=== PATIENT | male | born 1985 | race Caucasian/White ===

== ENCOUNTER 2016-11-17 22:25 | Inpatient (IN) | payer MEDICAID ==
[~2016-11-17] VITALS: Ht 177.8 cm; Wt 68.0 kg
[2016-11-17 23:30] LABS: APPEARANCE CLEAR (CLEAR); BILIRUBIN NEGATIVE (NEGATIVE); COLOR YELLOW (YELLOW); GLUCOSE NEGATIVE (NEGATIVE); KETONE NEGATIVE (NEGATIVE); LEUKOCYTE ESTERASE NEGATIVE (NEGATIVE); NITRITE NEGATIVE (NEGATIVE); PROTEIN NEGATIVE (NEGATIVE); SPECIFIC GRAVITY 1.015 (1.005-1.020); UROBILINOGEN NORMAL (NORMAL)
[2016-11-17 23:32] LABS: BASOPHILS 0.1 % (0.0-2.0); EOSINOPHILS 1.2 % (0-7); HEMATOCRIT 47.4 % (42.0-54.0); HEMOGLOBIN 15.8 g/dL (13.5-17.5); IMMATURE GRANULOCYTES 0.1 % (0-5); LYMPHOCYTES 8.1 % (15-50); MCH 29.6 pg (26.0-34.0); MCHC 33.3 g/dL (31.0-37.0); MCV 88.9 fL (80.0-100.0); MEAN PLATELET VOLUME 11.4 fL (7.4-10.4); MONOCYTES 6.6 % (2-11); NEUTROPHILS 83.9 % (40-80); PLATELET COUNT 244 10x3/uL (130-400); RBC 5.33 10x6/uL (4.20-6.10); RDW 13.7 % (11.5-14.5); WBC 10.2 10x3/uL (4.8-10.8)
[2016-11-17 23:55] LABS: ALBUMIN 4.1 g/dL (3.4-5.0); ALKALINE PHOSPHATASE 69 U/L (46-116); ALT (SGPT) 20 U/L (10-68); AMYLASE - SERUM 55 U/L (25-115); BILIRUBIN - TOTAL 0.61 mg/dL (0.2-1.3); CALC OSMOLALITY 286 mosm/kg (275-300); CALCIUM 9.3 mg/dL (8.5-10.1); CARBON DIOXIDE 33.2 mmol/L (21.0-32.0); CHLORIDE - SERUM 104 mmol/L (98-107); GLUCOSE 91 mg/dL (74-106); LIPASE 114 U/L (73-393); POTASSIUM - SERUM 3.6 mmol/L (3.5-5.1); PROTEIN - SERUM 7.2 g/dL (6.4-8.2); SODIUM 144 mmol/L (136-145); UREA NITROGEN 13 mg/dL (7-18); eGFR NON AFRICAN AMERICAN > 90 mL/min (90-120)
--- NOTE | 2016-11-18 04:18 | NUR ---
RECIEVED PT TO FLOOR VIA WHEELCHAIR AND VISITOR. PT IS ALERT AND ORIENTED AND ABLE TO VERBALIZE NEEDS. IV IS PATENT AND SALINE LOC AT THIS TIME. PT STATES PAIN IS 10/10. PT IS AMBULATORY BUT WAS INSTRUCTED TO CALL FOR ANY ASSISTANCE NEEDED. PT IS ORIENTED TO ROOM AND USE OF CALL LIGHT. NO NEEDS ARE VERBALIZED AT THIS TIME. WILL CONTINUE TO MONITOR. SIDE RAILS ARE UP X 1. BED IS IN LOWEST POSITION. CALL LIGHT IS WITHIN REACH.
--- NOTE | 2016-11-18 04:30 | NUR ---
ADMIT ASSESSMENT COMPLETED. PT C/O PAIN 10/ AND NAUSEA. ADMINISTERED PRESCRIBED PRN ZOFRAN AND DEMEROL PER ORDER. DENIES FURTHER NEEDS. WILL MONITOR. SIDE RAILS X 1. BED LOW. CALL LIGHT IN REACH.
[2016-11-18] MEDS ORDERED: IBUPROFEN800 MG PO (06:01)
[2016-11-18] MEDS ORDERED: ACETAMINOPHEN500 M1 PO (06:02)
[2016-11-18 06:12] VITALS: BP 114/77; BMI 21.5
--- NOTE | 2016-11-18 07:30 | NUR ---
PT ASSESSMENT COMPLETE AWAKE AND ALERT ORIENTED X 3 LUNGS CLEAR BILATERALLY BSA X 4 QUADS TENDERNESS NOTED TO ABDOMEN ON PALPATION. HRRR VOICES ALL NEEDS TO STAFF STATES THAT PAIN MED ORDERED NOT EFFECTIVE FOR PAIN CONTROL. WILL ADDRESS WITH MD.
--- NOTE | 2016-11-18 07:56 | NUR ---
LYING SUPINE WITH RESPIRATIONS EVEN AND NON LABORED. EYES CLOSED. BED IN LOWEST POSITION AND LOCKED WITH SRX2. CALL LIGHT IN REACH, WILL CONTINUE WITH PLAN OF CARE.
[2016-11-18 08:16] VITALS: BP 96/56
[2016-11-18 09:31] LABS: BASOPHILS 0.1 % (0.0-2.0); EOSINOPHILS 0.2 % (0-7); HEMATOCRIT 44.3 % (42.0-54.0); HEMOGLOBIN 14.6 g/dL (13.5-17.5); IMMATURE GRANULOCYTES 0.2 % (0-5); LYMPHOCYTES 4.3 % (15-50); MCH 29.3 pg (26.0-34.0); MCV 88.8 fL (80.0-100.0); MONOCYTES 0.7 % (2-11); NEUTROPHILS 94.5 % (40-80); PLATELET COUNT 244 10x3/uL (130-400); RBC 4.99 10x6/uL (4.20-6.10); RDW 13.7 % (11.5-14.5); WBC 9.2 10x3/uL (4.8-10.8)
[2016-11-18 12:08] VITALS: BP 113/70
[2016-11-18 12:46] VITALS: Ht 177.8 cm; Wt 68.0 kg
--- NOTE | 2016-11-18 12:46 | NUR ---
PAIN MED REQUESTED AND GIVEN EARLIER PER NEW ORDER OF INCREASE DEMEROL TO 25 MG Q4H NEEDED. WILL MONITOR.
[2016-11-18 16:04] VITALS: BP 111/75
--- NOTE | 2016-11-18 19:30 | NUR ---
RECIEVED SHIFT REPORT. PT IS LYING IN BED. ALERT AND ORIENTED AND ABLE TO VERBALIZE NEEDS. IV IS PATENT AND FLUIDS ARE RUNNING PER ORDER. PT IS AMBULATORY BUT WAS INSTRUCTED TO CALL FOR ANY ASSISTANCE NEEDED. PT STATES PAIN IS 9/10. NO NEEDS ARE VERBALIZED AT THIS TIME. WILL CONTINUE TO MONITOR. SIDE RAILS ARE UP X 2. BED IS IN LOWEST POSITION. CALL LIGHT IS WITHIN REACH.
--- NOTE | 2016-11-18 22:13 | NUR ---
SHIFT ASSESSMENT COMPLETED. NIGHT MEDS GIVEN WITH NO PROBLEMS. NO NEEDS ARE VOICED. WILL MONITOR. SIDE RAILS X 2. BED LOW. CALL LIGHT IN REACH.
[2016-11-19 04:00] VITALS: BP 122/71
[2016-11-19 06:43] LABS: BASOPHILS 0.1 % (0.0-2.0); EOSINOPHILS 0 % (0-7); HEMATOCRIT 42.4 % (42.0-54.0); HEMOGLOBIN 13.9 g/dL (13.5-17.5); IMMATURE GRANULOCYTES 0.3 % (0-5); LYMPHOCYTES 2.4 % (15-50); MCH 29.1 pg (26.0-34.0); MCHC 32.8 g/dL (31.0-37.0); MCV 88.7 fL (80.0-100.0); MEAN PLATELET VOLUME 11.7 fL (7.4-10.4); MONOCYTES 4.4 % (2-11); NEUTROPHILS 92.8 % (40-80); PLATELET COUNT 261 10x3/uL (130-400); RBC 4.78 10x6/uL (4.20-6.10); RDW 13.5 % (11.5-14.5)
[2016-11-19 06:46] LABS: WBC 19.5 10x3/uL (4.8-10.8)
[2016-11-19 07:09] LABS: ALBUMIN 3.3 g/dL (3.4-5.0); ALKALINE PHOSPHATASE 57 U/L (46-116); ALT (SGPT) 17 U/L (10-68); BILIRUBIN - TOTAL 0.44 mg/dL (0.2-1.3); CALC OSMOLALITY 282 mosm/kg (275-300); CALCIUM 8.8 mg/dL (8.5-10.1); CARBON DIOXIDE 28.8 mmol/L (21.0-32.0); CHLORIDE - SERUM 105 mmol/L (98-107); GLUCOSE 117 mg/dL (74-106); POTASSIUM - SERUM 4.2 mmol/L (3.5-5.1); PROTEIN - SERUM 5.9 g/dL (6.4-8.2); SODIUM 142 mmol/L (136-145); UREA NITROGEN 10 mg/dL (7-18); eGFR NON AFRICAN AMERICAN > 90 mL/min (90-120)
--- NOTE | 2016-11-19 08:00 | NUR ---
PT ASSESSMENT COMPLETE AWAKE AND ALERT ORINETED X 3 LUNGS CTA BILATERALLY ALL ADLS PER STAFF ASSIST HAS UNSTEADY GAIT TOLERATES MEDS WELL STOOL SAMPLE PROVIDED. SEE FLOWSHEET FOR ASSESSMENT
[2016-11-19 08:05] LABS: ERYTHROCYTE SEDIMENTATION RATE 3 mm/hr (0-15)
--- NOTE | 2016-11-19 08:30 | NUR ---
LYING IN BED,WITHOUT DISTRESS,CALL LIGHT IN REACH
[2016-11-19 08:39] VITALS: BP 106/63
--- NOTE | 2016-11-19 09:45 | CN ---
PATIENT NAME:CRUZ SAHU MEDICAL RECORD: [id number] : 83 LOCATION:[facility] ADMIT DATE: 11/18/16 ACCOUNT: [id number] CONSULTING PHYSICIAN: JAYCE PAYNE MD REFERRING PHYSICIAN: NIRAJ GILMORE MD DATE OF CONSULTATION: 11/18/2016 REFERRING PHYSICIAN: Niraj Gilmore MD HISTORY OF PRESENT ILLNESS: The patient is a 31-year-old white male with a history of seizure and chronic back issues, basically was admitted with an apparent Crohn's flare. He was reportedly diagnosed with Crohn's disease by Dr. Lundberg couple of years ago when he underwent a colonoscopy, which revealed ileitis suggestive of Crohn's disease. The patient left AMA and has been treated with off and on steroids since. He has not been seen by a game tester since then. He has been taking a lot of ibuprofen for his back. He has had steroids 2 or 3 times a year since then but was now admitted with refractory nausea and vomiting and vague abdominal pain. CT of abdomen in the ER revealed ileitis consistent with a Crohn's disease flare. PAST MEDICAL HISTORY: As above. SOCIAL HISTORY: The patient is a longtime smoker. Denies alcohol use. FAMILY HISTORY: Negative for GI diseases. REVIEW OF SYSTEMS: Noncontributory other than in the HPI. ALLERGIES: TRAMADOL, PENICILLIN, MORPHINE. PHYSICAL EXAMINATION: GENERAL: Reveals a thin white male in no acute distress. VITAL SIGNS: Stable. He is afebrile. CHEST: Clear. HEART: Regular rate and rhythm. ABDOMEN: Soft, nontender and essentially nontender. EXTREMITIES: No edema. LABORATORY DATA: Reveals a white count 10,000 hematocrit 47, platelet count 244,000. Electrolytes normal. BUN 13, creatinine 1. Liver enzymes normal. Amylase and lipase are normal. CT of the abdomen and pelvis reveals mixed thickening, and dilation of the distal small bowel with thickening, especially of the distal ileum consistent with Crohn's disease and probably a component of partial obstruction. IMPRESSION: Crohn's disease with small bowel with flare. RECOMMENDATION: 1. Agree with starting IV steroids and bowel rest. 2. Check faecal calprotectin. 3. The patient will probably need to be started on either Imuran and/or Humira in the near future. In the meantime, we will check a hepatitis screen and TPN and TB testing. 4. We will check chest x-ray and a KUB. Depending on his clinical course, we might need to consider surgical evaluation, in case his obstructive phenomenon CONSULT REPORT [id number] Jovel does not improve with medical therapy. TRANSINT:[id number] Voice Confirmation ID: [id number] DOCUMENT ID: [id number] JAYCE PAYNE MD at 0945 CC: NIRAJ GILMORE MD [id number] DICTATION DATE: 11/18/162042 REMEDIAL MASSEUR: 11/19/16 0032 ADM IN [facility] [address] [place] [address]
[2016-11-19 12:26] VITALS: BP 126/75
--- NOTE | 2016-11-19 15:18 | NUR ---
Patient Name: CRUZ SAHU Admission Status: ER Accout number: [id number] Admission Date: 11-18-2016 : 1985 Admission Diagnosis: Attending: JOYA Current LOS: 1 Anticipated DC Date: 11-20-2016 Planned Disposition: Home or Self Care Primary Insurance: MEDICAID [place] Discharge Planning Comments: CM MET WITH PATIENT REGARDING D/C NEEDS AND PLANS. PATIENT STATED HE LIVES WITH HIS AND SHE WILL DRIVE HIM HOME AT DISCHARGE. PATIENT STATED THERE ARE NO STEPS OR STAIRS AT HIS HOME. PATIENT STATED HE IS INDEPENDENT WITH HIS CARE AND HAS A CANE AT HOME. PATIENTS PCP IS DR. MIRYAM MATHIAS ([facility]). PATIENT USES [facility] [address]. PATIENT DOES NOT WANT HOME HEALTH. CM WILL CONTINUE TO FOLLOW PATIENT WITH D/C NEEDS AND PLANS. PCP DR. MIRYAM MATHIAS [facility] [address] - [phone] [facility] () [phone] Husbandry Technician: Nikki Turner Is the patient Alert and Oriented? Yes 0 * How many steps to enter\exit or inside your home? 0 0 * PCP DR. MIRYAM MATHIAS ([facility]) 0 * Pharmacy [facility] [address] 0 * Preadmission Environment Home with Family 0 * ADLs Independent 0 * Equipment None 0 * List name and contact numbers for known caregivers / representatives who currently or will assist patient after discharge: [facility] ([facility]) [phone] 0 * Community resources currently utilized None 0 * Additional services required to return to the preadmission environment? Yes 0 * Can the patient safely return to the preadmission environment? Yes 0 * Has this patient been hospitalized within the prior 30 days at any hospital? No 0 Grand Total: 0
[2016-11-19 16:58] VITALS: BP 115/70
--- NOTE | 2016-11-19 18:30 | NUR ---
PT HAS AMBULATED WITH ROLLING WALKER WITH THERAPY TODAY NO ACUTE DIWTRESS NOTED ADVANCED DIET TO FULL LIQUIDS PER ORDER WILL MONITOR FOR NAUSEA PER FLAT CUTTER
--- NOTE | 2016-11-19 18:55 | NUR ---
PT SEEN FOR CRIMINOLOGY TEACHER. STATES HAS CRAMPING SENSATION IN LOWER ABDOMEN. STATES THIS STARTED AFTER FULL LIQ LUNCH. HAS NO BM TO DATE YET.
[2016-11-19 19:00] VITALS: BP 132/65
--- NOTE | 2016-11-19 19:25 | NUR ---
RECIEVED SHIFT REPORT. PT IS LYING IN BED. ALERT AND ORIENTED AND ABLE TO VERBALIZE NEEDS. IV IS PATENT AND FLUIDS ARE RUNNING PER ORDER. PT IS AMBULATORY BUT WAS INSTRUCTED TO CALL FOR ANY ASSISTANCE NEEDED. PT STATES PAIN IS 7/10. NO NEEDS ARE VERBALIZED AT THIS TIME. WILL CONTINUE TO MONITOR. SIDE RAILS ARE UP X 2. BED IS IN LOWEST POSITION. CALL LIGHT IS WITHIN REACH.
--- NOTE | 2016-11-19 20:38 | NUR ---
SHIFT ASSESSMENT COMPLETED. NIGHT MEDS GIVEN WITH NO PROBLEMS. PT C/O PAIN 06/29. ADMINISTERED PRESCRIBED PRN DEMEROL PER ORDER. DENIES FURTHER NEEDS. WILL MONITOR. SIDE RAILS X 2. BED LOW. CALL LIGHT IN REACH.
[2016-11-20 04:00] VITALS: BP 114/75
[2016-11-20 05:29] LABS: BASOPHILS 0 % (0.0-2.0); EOSINOPHILS 0 % (0-7); HEMATOCRIT 39.2 % (42.0-54.0); HEMOGLOBIN 12.9 g/dL (13.5-17.5); IMMATURE GRANULOCYTES 0.3 % (0-5); LYMPHOCYTES 2.6 % (15-50); MCH 29.3 pg (26.0-34.0); MCHC 32.9 g/dL (31.0-37.0); MCV 88.9 fL (80.0-100.0); MEAN PLATELET VOLUME 11.5 fL (7.4-10.4); MONOCYTES 2.7 % (2-11); NEUTROPHILS 94.4 % (40-80); PLATELET COUNT 221 10x3/uL (130-400); RBC 4.41 10x6/uL (4.20-6.10); RDW 13.6 % (11.5-14.5); WBC 18.4 10x3/uL (4.8-10.8)
[2016-11-20 05:48] LABS: ALKALINE PHOSPHATASE 47 U/L (46-116); ALT (SGPT) 16 U/L (10-68); BILIRUBIN - TOTAL 0.27 mg/dL (0.2-1.3); CALC OSMOLALITY 280 mosm/kg (275-300); CALCIUM 8.5 mg/dL (8.5-10.1); CARBON DIOXIDE 30.7 mmol/L (21.0-32.0); CHLORIDE - SERUM 106 mmol/L (98-107); CREATININE - SERUM 0.9 mg/dL (0.6-1.3); GLUCOSE 114 mg/dL (74-106); PROTEIN - SERUM 5.6 g/dL (6.4-8.2); SODIUM 141 mmol/L (136-145); UREA NITROGEN 11 mg/dL (7-18); eGFR NON AFRICAN AMERICAN > 90 mL/min (90-120)
--- NOTE | 2016-11-20 07:15 | NUR ---
REPORT RECEIVED FROM LABEL PRINTING MACHINIST NURSE. CALL LIGHT IN REACH.
[2016-11-20 07:57] VITALS: BP 109/80
[2016-11-20 08:21] LABS: HEPATITIS C ANTIBODY <0.1 (0.0-0.9)
--- NOTE | 2016-11-20 08:27 | NUR ---
ASSESSMENT COMPLETED. DEMEROL 25 MG SIVP PER C/O ABDOMINAL PAIN. NICOTINE PATCH TO RIGHT ARM. REFUSES SCDs. CALL LIGHT IN REACH. WILL CONTINUE WITH PLAN OF CARE.
--- NOTE | 2016-11-20 09:20 | NUR ---
PASSWORD OBTAINED FROM PATIENT. STATES PAIN HAS DECREASED TO A 5.
--- NOTE | 2016-11-20 10:05 | NUR ---
AMBULATED 500 FEET IN HALLWAY WITH PHYSICAL THERAPY.
--- NOTE | 2016-11-20 10:05 | NUR ---
AMBULATING IN HALLWAY AT THIS TIME WITH PHYSICAL THERAPY. RESPIRATIONS EVEN AND NON LABORED. CALL LIGHT IN REACH, WILL CONTINUE WITH PLAN OF CARE.
[2016-11-20 11:57] VITALS: BP 114/72
--- NOTE | 2016-11-20 12:04 | NUR ---
AMADO PO. DEMEROL 25 MG SIVP PER C/O PAIN OF 9. SOLUMEDROL IVP, AND FLAGYL 500 MG IVPB. VISITORS IN ROOM. CALL LIGHT IN REACH.
--- NOTE | 2016-11-20 12:31 | NUR ---
STATES PAIN IN HIS BACK RADIDATING TO HIS SIDES WHEN VOIDING. NOTIFIED MD WHOM ORDERED A UA. URINAL GIVEN TO PATIENT AND EXPLAINED ABOUT THE TEST ORDERED. VERBALIZED UNDERSTANDING.
--- NOTE | 2016-11-20 13:59 | NUR ---
PHYSICAL THERAPY SIGNED PATIENT OFF AFTER WALKING ANOTHER 500 FEET.
--- NOTE | 2016-11-20 14:00 | NUR ---
PHYSICAL THERAPY SIGNED PATIENT OFF AFTER WALKING ANOTHER 500 FEET.
--- NOTE | 2016-11-20 16:06 | NUR ---
URINE SAMPLE COLLECTED AND SENT TO LAB.
[2016-11-20 16:23] VITALS: BP 126/86
[2016-11-20 16:38] LABS: APPEARANCE CLEAR (CLEAR); BILIRUBIN NEGATIVE (NEGATIVE); COLOR YELLOW (YELLOW); GLUCOSE NEGATIVE (NEGATIVE); KETONE NEGATIVE (NEGATIVE); LEUKOCYTE ESTERASE NEGATIVE (NEGATIVE); NITRITE NEGATIVE (NEGATIVE); PROTEIN NEGATIVE (NEGATIVE); UROBILINOGEN NORMAL (NORMAL)
--- NOTE | 2016-11-20 16:39 | NUR ---
C/O PAIN OF 10 TO ABDOMEN. DEMEROL 25 MG SIVP. CALL LIGHT IN REACH.
--- NOTE | 2016-11-20 18:12 | NUR ---
NO CHANGES IN INITIAL ASSESSMENT. STILL REFUSES SCDs. CALL LIGHT IN REACH. WILL CONTINUE WITH PLAN OF CARE.
--- NOTE | 2016-11-20 19:58 | NUR ---
AWAKE,ALERT,ORIENTED.NO COMPLAINTS VOICED, IV NS INFUSING TO RIGHT HAND AT 75CC/HR. NO REDNESS OR EDEMA NOTED. WELLS. CL IN REACH.
[2016-11-20 21:00] VITALS: BP 115/76
[2016-11-21] VITALS: BP 115/68
--- NOTE | 2016-11-21 01:59 | NUR ---
EYES CLOSED RESP EVEN AND UNLABORED. NO DISTRESS NOTED. CL IN REACH.
[2016-11-21 04:00] VITALS: BP 113/69
--- NOTE | 2016-11-21 04:00 | NUR ---
PATIENT SLEEPING WITH NO DISTRESS NOTED. IV TO RIGHT HAND PATENT AND INFUSING NS @ 100. SRX2. BED LOW. CALL LIGHT WITHIN REACH.
[2016-11-21 05:00] LABS: BASOPHILS 0 % (0.0-2.0); EOSINOPHILS 0 % (0-7); HEMATOCRIT 40.9 % (42.0-54.0); IMMATURE GRANULOCYTES 0.4 % (0-5); MCH 28.8 pg (26.0-34.0); MCHC 31.8 g/dL (31.0-37.0); MCV 90.5 fL (80.0-100.0); MEAN PLATELET VOLUME 11.9 fL (7.4-10.4); MONOCYTES 6.3 % (2-11); NEUTROPHILS 89.3 % (40-80); PLATELET COUNT 231 10x3/uL (130-400); RBC 4.52 10x6/uL (4.20-6.10); RDW 13.6 % (11.5-14.5); WBC 14.1 10x3/uL (4.8-10.8)
[2016-11-21 05:41] LABS: ALKALINE PHOSPHATASE 48 U/L (46-116); ALT (SGPT) 19 U/L (10-68); BILIRUBIN - TOTAL 0.19 mg/dL (0.2-1.3); CALCIUM 8.6 mg/dL (8.5-10.1); CARBON DIOXIDE 30.3 mmol/L (21.0-32.0); CHLORIDE - SERUM 104 mmol/L (98-107); CREATININE - SERUM 0.8 mg/dL (0.6-1.3); GLUCOSE 110 mg/dL (74-106); POTASSIUM - SERUM 4.4 mmol/L (3.5-5.1); PROTEIN - SERUM 5.5 g/dL (6.4-8.2); SODIUM 140 mmol/L (136-145); eGFR NON AFRICAN AMERICAN > 90 mL/min (90-120)
[2016-11-21 05:49] LABS: CALC OSMOLALITY 280 mosm/kg (275-300); UREA NITROGEN 15 mg/dL (7-18)
--- NOTE | 2016-11-21 06:02 | NUR ---
NO CHANGE IN ASSESSMENT.CL IN REACH
--- NOTE | 2016-11-21 07:00 | NUR ---
REPORT RECEIVED FOR FRONT OF HOUSE MANAGER NURSE. CALL LIGHT IN REACH.
--- NOTE | 2016-11-21 07:50 | NUR ---
ASSESSMENT COMPLETED. REFUSES SCDs. CALL LIGHT IN REACH. WILL CONTINUE WITH PLAN OF CARE.
[2016-11-21 08:08] VITALS: BP 112/57
--- NOTE | 2016-11-21 08:43 | NUR ---
DEMEROL SIVP PER C/O 9 IN ABDOMEN AND BACK. AM MEDS ADMINISTERED. EXPLAINED USE AND SIDE EFFECTS OF IMURAN.
--- NOTE | 2016-11-21 10:41 | NUR ---
NUTRITION MONITORING & EVAL CHART REVIEWED, PT VISIT. DIET ADVANCED TO REG LOW RESIDUE. 100% INTAKE BREAKFAST. RD FOLLOWING
--- NOTE | 2016-11-21 10:47 | NUR ---
FLAGYL 500 MG IVPB. STATES PAIN HAS DECREASED TO A 8. INFORMATION SHEET FOR IMURAN AND HOW IT WORKS ON CROHN'S DISEASE GIVEN TO PATIENT. STATES HE WILL TAKE A SHOWER IN ABOUT AN HOUR. CALL LIGHT IN REACH.
[2016-11-21 11:18] VITALS: BP 104/60
--- NOTE | 2016-11-21 11:31 | NUR ---
CM REASSESSMENT NOTE: PATIENT IS DISCHARGING HOME TODAY- ([facility]A) AT BEDSIDE AND STATED SHE IS DRIVING PATIENT HOME. PATIENT DENIED HOME HEALTH AND STATED HE HAD NO OTHER NEEDS FOR DISCHARGE.
[2016-11-21] MEDS ORDERED: IMURAN50 MG PO (11:32)
[2016-11-21] MEDS ORDERED: NICODERM C1 PATCH .3 TRANSDERM (11:32)
[2016-11-21] MEDS ORDERED: FLORAJEN3 CAPS460 MG PO (11:32)
[2016-11-21] MEDS ORDERED: STERAPRED DS 1210 MG PO (11:34)
[2016-11-21] MEDS ORDERED: NORCO 7.5/325 T1 TA1 PO (11:35)
--- NOTE | 2016-11-21 12:50 | NUR ---
IN ROOM EATING LUNCH. DENIES OTHER NEEDS AT THIS TIME. CALL LIGHT IN REACH.
--- NOTE | 2016-11-21 14:00 | NUR ---
PERCOCET PO PER C/O PAIN OF 8. IN ROOM. CALL LIGHT IN REACH.
--- NOTE | 2016-11-21 16:38 | NUR ---
WAITING ON DR. PAYNE TO SEE PATIENT. AT BEDSIDE. CALL LIGHT IN REACH.
--- NOTE | 2016-11-21 17:42 | NUR ---
PATIENT SITTING ON THE BED, DRESSED AND READY TO DISCHARGE. DENIES NEEDS.
--- NOTE | 2016-11-21 17:55 | NUR ---
REQUESTING PAIN PILL D/T PAIN OF 6. PERCOCET 1 PO. CALL LIGHT IN REACH.
--- NOTE | 2016-11-21 18:57 | NUR ---
NO CHANGES IN INITIAL ASSESSMENT. DR. PAYNE IN ROOM. CALL LIGHT IN REACH. WILL CONTINUE WITH PLAN OF CARE.
--- NOTE | 2016-11-21 19:14 | NUR ---
IV DC'D WITH TIP INTACT. DC INSTRUCTIONS GIVEN TO PATIENT AND EXPLAINED. VERBALIZED UNDERSTANDING. DC'D TO VEHICLE. REFUSED WC.
== END 2016-11-21 19:14 | disposition home or self-care (01) | DRG 386 ==
LOC: D.ER 22:25 → OBSVTIME 11-18 03:24 → D.MS 11-18 03:24
PROVIDERS: Family Medicine; Internal Medicine Gastroenterology; ADMIT Family Medicine
DX: K50.912 Crohn's disease, unspecified, with intestinal obstruction (principal); F17.203 Nicotine dependence unspecified, with withdrawal; J43.9 Emphysema, unspecified; J45.909 Unspecified asthma, uncomplicated; R56.9 Unspecified convulsions

== ENCOUNTER → 2016-12-24 10:14 | Outpatient (CLI) | payer MEDICAID ==
[2016-11-18 12:46] VITALS: BMI 21.5
[~2016-12-24 10:14] MED LIST: ACETAMINOPHEN500 M1 PO; FLORAJEN3 CAPS460 MG PO; IBUPROFEN800 MG PO; IMURAN50 MG PO; NICODERM C1 PATCH .3 TRANSDERM; NORCO 7.5/325 T1 TA1 PO; STERAPRED DS 1210 MG PO
[2016-12-24 10:37] LABS: BASOPHILS 0.2 % (0.0-2.0); EOSINOPHILS 1.6 % (0-7); HEMATOCRIT 44.8 % (42.0-54.0); HEMOGLOBIN 14.3 g/dL (13.5-17.5); IMMATURE GRANULOCYTES 0.4 % (0-5); LYMPHOCYTES 13.1 % (15-50); MCH 29.1 pg (26.0-34.0); MCHC 31.9 g/dL (31.0-37.0); MCV 91.2 fL (80.0-100.0); MEAN PLATELET VOLUME 10.8 fL (7.4-10.4); MONOCYTES 3.4 % (2-11); NEUTROPHILS 81.3 % (40-80); PLATELET COUNT 240 10x3/uL (130-400); RBC 4.91 10x6/uL (4.20-6.10); RDW 13.9 % (11.5-14.5); WBC 5.6 10x3/uL (4.8-10.8)
== END | disposition home or self-care (01) ==
LOC: D.LAB 10:14
PROVIDERS: Internal Medicine Gastroenterology
DX: K50.90 Crohn's disease, unspecified, without complications (principal)

== ENCOUNTER → 2017-01-29 16:59 | Outpatient (CLI) | payer MEDICAID ==
[2016-11-18 12:46] VITALS: BMI 21.5
== END | disposition home or self-care (01) ==
LOC: D.RAD 16:59
DX: M25.552 Pain in left hip (principal); M54.5 Low back pain

== ENCOUNTER 2017-02-15 20:02 | Emergency (ER) | payer MEDICAID ==
[2016-11-18 12:46] VITALS: BMI 21.5
[2017-02-15 21:31] LABS: APPEARANCE CLEAR (CLEAR); BILIRUBIN NEGATIVE (NEGATIVE); COLOR YELLOW (YELLOW); GLUCOSE NEGATIVE (NEGATIVE); KETONE NEGATIVE (NEGATIVE); LEUKOCYTE ESTERASE NEGATIVE (NEGATIVE); NITRITE NEGATIVE (NEGATIVE); PROTEIN NEGATIVE (NEGATIVE); UROBILINOGEN NORMAL (NORMAL)
== END 2017-02-15 22:10 | disposition home or self-care (01) ==
LOC: D.ER 20:02
PROVIDERS: Family Medicine
DX: N39.0 Urinary tract infection, site not specified (principal); J45.909 Unspecified asthma, uncomplicated; K21.9 Gastro-esophageal reflux disease without esophagitis

== ENCOUNTER 2017-04-06 22:02 | Emergency (ER) | payer MEDICAID ==
[2016-11-18 12:46] VITALS: BMI 21.5
[2017-04-06 22:30] LABS: APPEARANCE CLEAR (CLEAR); BILIRUBIN NEGATIVE (NEGATIVE); COLOR YELLOW (YELLOW); GLUCOSE NEGATIVE (NEGATIVE); KETONE NEGATIVE (NEGATIVE); LEUKOCYTE ESTERASE NEGATIVE (NEGATIVE); NITRITE NEGATIVE (NEGATIVE); PROTEIN NEGATIVE (NEGATIVE); SPECIFIC GRAVITY 1.005 (1.005-1.020); UROBILINOGEN NORMAL (NORMAL)
[2017-04-06 23:09] LABS: BASOPHILS 0.4 % (0-2); EOSINOPHILS 3.3 % (0-7); HEMATOCRIT 44.2 % (42.0-54.0); IMMATURE GRANULOCYTES 0.2 % (0-5); LYMPHOCYTES 19.4 % (15-50); MCH 30.1 pg (26.0-34.0); MCHC 33.9 g/dL (31.0-37.0); MCV 88.6 fL (80.0-100.0); MONOCYTES 9.4 % (2-11); NEUTROPHILS 67.3 % (40-80); PLATELET COUNT 268 10x3/uL (130-400); RBC 4.99 10x6/uL (4.20-6.10); RDW 13.8 % (11.5-14.5); WBC 5.4 10x3/uL (4.8-10.8)
[2017-04-06 23:33] LABS: ALBUMIN 3.6 g/dL (3.4-5.0); ALKALINE PHOSPHATASE 65 U/L (46-116); ALT (SGPT) 25 U/L (10-68); BILIRUBIN - TOTAL 0.28 mg/dL (0.2-1.3); CALC OSMOLALITY 289 mosm/kg (275-300); CARBON DIOXIDE 28.2 mmol/L (21.0-32.0); CHLORIDE - SERUM 107 mmol/L (98-107); CREATININE - SERUM 1.1 mg/dL (0.6-1.3); GLUCOSE 100 mg/dL (74-106); POTASSIUM - SERUM 3.6 mmol/L (3.5-5.1); PROTEIN - SERUM 6.7 g/dL (6.4-8.2); SODIUM 146 mmol/L (136-145); UREA NITROGEN 10 mg/dL (7-18); eGFR NON AFRICAN AMERICAN 82 mL/min (90-120)
== END 2017-04-07 00:47 | disposition home or self-care (01) ==
LOC: D.ER 22:02
PROVIDERS: Family Medicine
DX: R10.9 Unspecified abdominal pain (principal); R19.7 Diarrhea, unspecified

== ENCOUNTER 2017-07-03 09:36 | Emergency (ER) | payer MEDICAID ==
[2016-11-18 12:46] VITALS: BMI 21.5
[2017-07-03 10:09] LABS: BASOPHILS 0.2 % (0-2); EOSINOPHILS 3.3 % (0-7); HEMATOCRIT 46.6 % (42.0-54.0); HEMOGLOBIN 15.8 g/dL (13.5-17.5); LYMPHOCYTES 20.4 % (15-50); MCHC 33.9 g/dL (31.0-37.0); MCV 88.4 fL (80.0-100.0); MEAN PLATELET VOLUME 10.7 fL (7.4-10.4); NEUTROPHILS 66.1 % (40-80); RBC 5.27 10x6/uL (4.20-6.10); RDW 12.6 % (11.5-14.5); WBC 4.9 10x3/uL (4.8-10.8)
[2017-07-03 10:22] LABS: ALBUMIN 3.9 g/dL (3.4-5.0); ANION GAP 12.2 mmol/L (8-16); BILIRUBIN - TOTAL 0.53 mg/dL (0.2-1.3); CARBON DIOXIDE 28.4 mmol/L (21.0-32.0); CREATININE - SERUM 1.3 mg/dL (0.6-1.3); POTASSIUM - SERUM 3.6 mmol/L (3.5-5.1); PROTEIN - SERUM 6.9 g/dL (6.4-8.2)
[2017-07-03 10:43] LABS: PLATELET COUNT 209 10x3/uL (130-400)
[2017-07-03 10:50] LABS: APPEARANCE CLEAR (CLEAR); BILIRUBIN NEGATIVE (NEGATIVE); COLOR YELLOW (YELLOW); EPITHELIAL CELLS OCC /hpf (0-5); GLUCOSE NEGATIVE (NEGATIVE); KETONE NEGATIVE (NEGATIVE); LEUKOCYTE ESTERASE TRACE (NEGATIVE); MUCUS <1+ /lpf (NONE SEEN); NITRITE NEGATIVE (NEGATIVE); PROTEIN NEGATIVE (NEGATIVE); RED CELLS - URINE 0-5 /hpf (0-5); UROBILINOGEN NORMAL (NORMAL); WHITE CELLS - URINE OCC /hpf (0-5)
== END 2017-07-03 14:06 | disposition home or self-care (01) ==
LOC: D.ER 09:36
PROVIDERS: Family Medicine
DX: R10.9 Unspecified abdominal pain (principal); K50.919 Crohn's disease, unspecified, with unspecified complications; K60.2 Anal fissure, unspecified; F17.200 Nicotine dependence, unspecified, uncomplicated

== ENCOUNTER 2018-01-13 14:38 | Emergency (ER) | payer MEDICAID ==
[2016-11-18 12:46] VITALS: BMI 21.5
[2018-01-13 15:52] LABS: BASOPHILS 0.2 % (0-2); EOSINOPHILS 3.2 % (0-7); HEMATOCRIT 44.2 % (42.0-54.0); HEMOGLOBIN 14.7 g/dL (13.5-17.5); IMMATURE GRANULOCYTES 0.2 % (0-5); LYMPHOCYTES 12.5 % (15-50); MCH 29.7 pg (26.0-34.0); MCHC 33.3 g/dL (31.0-37.0); MCV 89.3 fL (80.0-100.0); MEAN PLATELET VOLUME 10.7 fL (7.4-10.4); MONOCYTES 8.3 % (2-11); NEUTROPHILS 75.6 % (40-80); RBC 4.95 10x6/uL (4.20-6.10); RDW 13.4 % (11.5-14.5); WBC 5.9 10x3/uL (4.8-10.8)
[2018-01-13 15:59] LABS: APTT 26.2 SECONDS (22.8-39.4); INR 0.98 (0.85-1.17); PROTIME 12.6 SECONDS (11.6-15.0)
[2018-01-13 16:11] LABS: PLATELET COUNT 257 10x3/uL (130-400)
[2018-01-13 16:13] LABS: ALBUMIN 3.8 g/dL (3.4-5.0); ALKALINE PHOSPHATASE 89 U/L (46-116); ALT (SGPT) 25 U/L (10-68); BILIRUBIN - TOTAL 0.63 mg/dL (0.2-1.3); CALC OSMOLALITY 286 mosm/kg (275-300); CALCIUM 8.8 mg/dL (8.5-10.1); CARBON DIOXIDE 28.6 mmol/L (21.0-32.0); CHLORIDE - SERUM 105 mmol/L (98-107); CREATININE - SERUM 1.1 mg/dL (0.6-1.3); GLUCOSE 87 mg/dL (74-106); POTASSIUM - SERUM 3.8 mmol/L (3.5-5.1); PROTEIN - SERUM 7.6 g/dL (6.4-8.2); SODIUM 144 mmol/L (136-145); UREA NITROGEN 15 mg/dL (7-18); eGFR NON AFRICAN AMERICAN 82 mL/min (90-120)
[2018-01-13 16:22] LABS: APPEARANCE CLEAR (CLEAR); BILIRUBIN NEGATIVE (NEGATIVE); COLOR YELLOW (YELLOW); GLUCOSE NEGATIVE (NEGATIVE); KETONE NEGATIVE (NEGATIVE); NITRITE NEGATIVE (NEGATIVE); PROTEIN NEGATIVE (NEGATIVE); UROBILINOGEN NORMAL (NORMAL)
[2018-01-13 16:31] LABS: UDS - AMPHET POSITIVE QUAL (NEGATIVE); UDS - BARB NEGATIVE QUAL (NEGATIVE); UDS - BENZO NEGATIVE QUAL (NEGATIVE); UDS - COCAINE NEGATIVE QUAL (NEGATIVE); UDS - OPIATE NEGATIVE QUAL (NEGATIVE); UDS - PCP NEGATIVE QUAL (NEGATIVE); UDS - THC NEGATIVE QUAL (NEGATIVE)
== END 2018-01-13 20:32 | disposition home or self-care (01) ==
LOC: D.ER 14:38
PROVIDERS: Family Medicine
DX: T14.91XA Suicide attempt, initial encounter (principal); T60.4X2A Toxic effect of rodenticides, intentional self-harm, initial encounter; Y92.019 Unspecified place in single-family (private) house as the place of occurrence of the external cause; F17.200 Nicotine dependence, unspecified, uncomplicated

== ENCOUNTER 2018-02-11 20:26 | Emergency (ER) | payer MEDICAID ==
[2016-11-18 12:46] VITALS: BMI 21.5
== END 2018-02-11 23:57 | disposition home or self-care (01) ==
LOC: D.ER 20:26
DX: S39.012A Strain of muscle, fascia and tendon of lower back, initial encounter (principal); V43.62XA Car passenger injured in collision with other type car in traffic accident, initial encounter; Y93.89 Activity, other specified; Y92.410 Unspecified street and highway as the place of occurrence of the external cause; M54.5 Low back pain; F17.200 Nicotine dependence, unspecified, uncomplicated

== ENCOUNTER 2018-05-11 18:28 | Inpatient (IN) | payer MEDICAID ==
[~2018-05-11] VITALS: Ht 177.8 cm; Wt 74.1 kg
[2018-05-11] MEDS ORDERED: VITAMIN D250000 UNIT (18:34)
[2018-05-11] MEDS ORDERED: MOBIC7.5 MG PO (18:34)
[2018-05-11] MEDS ORDERED: CELEXA20 MG (18:34)
[2018-05-11 20:01] LABS: BASOPHILS 0.2 % (0-2); EOSINOPHILS 1.4 % (0-7); HEMATOCRIT 44.7 % (42.0-54.0); HEMOGLOBIN 15.3 g/dL (13.5-17.5); IMMATURE GRANULOCYTES 0.1 % (0-5); LYMPHOCYTES 11.1 % (15-50); MCH 28.8 pg (26.0-34.0); MCHC 34.2 g/dL (31.0-37.0); MEAN PLATELET VOLUME 10.4 fL (7.4-10.4); MONOCYTES 9.2 % (2-11); PLATELET COUNT 295 10x3/uL (130-400); RBC 5.32 10x6/uL (4.20-6.10); RDW 13.1 % (11.5-14.5)
[2018-05-11 20:17] LABS: APTT 28.7 SECONDS (22.8-39.4); INR 1.06 (0.85-1.17); PROTIME 13.4 SECONDS (11.6-15.0)
[2018-05-11 20:18] LABS: D-DIMER-QUANTITATIVE 0.35 ug/mLFEU (0.20-0.54)
[2018-05-11 20:23] LABS: ALBUMIN 3.9 g/dL (3.4-5.0); ALKALINE PHOSPHATASE 109 U/L (46-116); ALT (SGPT) 19 U/L (10-68); BILIRUBIN - TOTAL 1.16 mg/dL (0.2-1.3); CALC OSMOLALITY 289 mosm/kg (275-300); CALCIUM 9.2 mg/dL (8.5-10.1); CARBON DIOXIDE 24.4 mmol/L (21.0-32.0); CHLORIDE - SERUM 104 mmol/L (98-107); CREATININE - SERUM 1.2 mg/dL (0.6-1.3); GLUCOSE 97 mg/dL (74-106); POTASSIUM - SERUM 3.6 mmol/L (3.5-5.1); PROTEIN - SERUM 7.7 g/dL (6.4-8.2); SODIUM 144 mmol/L (136-145); UREA NITROGEN 22 mg/dL (7-18); eGFR NON AFRICAN AMERICAN 74 mL/min (90-120)
[2018-05-11 20:34] LABS: CKMB 2.4 U/L (0.0-3.6); CREATINE KINASE 170 UL (21-232); MAGNESIUM - SERUM 2.1 mg/dL (1.8-2.4)
[2018-05-11 22:42] LABS: APPEARANCE CLEAR (CLEAR); BILIRUBIN NEGATIVE (NEGATIVE); COLOR YELLOW (YELLOW); GLUCOSE NEGATIVE (NEGATIVE); KETONE MODERATE mg/dL (NEGATIVE); NITRITE NEGATIVE (NEGATIVE); PROTEIN NEGATIVE (NEGATIVE); SPECIFIC GRAVITY 1.015 (1.005-1.020); UROBILINOGEN NORMAL (NORMAL)
[2018-05-11 22:53] LABS: UDS - AMPHET POSITIVE QUAL (NEGATIVE); UDS - BARB NEGATIVE QUAL (NEGATIVE); UDS - BENZO NEGATIVE QUAL (NEGATIVE); UDS - COCAINE NEGATIVE QUAL (NEGATIVE); UDS - OPIATE NEGATIVE QUAL (NEGATIVE); UDS - PCP NEGATIVE QUAL (NEGATIVE); UDS - THC NEGATIVE QUAL (NEGATIVE)
[2018-05-11 23:45] VITALS: BP 112/59
[2018-05-12] VITALS (12 sets, daily range): BP systolic 92–122; BP diastolic 48–85; Ht 177.8 cm; Wt 74.1 kg
[2018-05-12 05:03] LABS: BASOPHILS 0.2 % (0-2); EOSINOPHILS 5.3 % (0-7); HEMATOCRIT 45.8 % (42.0-54.0); HEMOGLOBIN 15.2 g/dL (13.5-17.5); IMMATURE GRANULOCYTES 0.2 % (0-5); LYMPHOCYTES 17.1 % (15-50); MCH 28.7 pg (26.0-34.0); MCHC 33.2 g/dL (31.0-37.0); MEAN PLATELET VOLUME 10.2 fL (7.4-10.4); MONOCYTES 11.4 % (2-11); NEUTROPHILS 65.8 % (40-80); PLATELET COUNT 238 10x3/uL (130-400); RBC 5.29 10x6/uL (4.20-6.10); RDW 13.3 % (11.5-14.5)
[2018-05-12 05:18] LABS: MCV 86.6 fL (80.0-100.0); WBC 4.9 10x3/uL (4.8-10.8)
[2018-05-12 05:49] LABS: ALBUMIN 3.6 g/dL (3.4-5.0); ALKALINE PHOSPHATASE 105 U/L (46-116); ALT (SGPT) 19 U/L (10-68); BILIRUBIN - TOTAL 0.97 mg/dL (0.2-1.3); CALC OSMOLALITY 290 mosm/kg (275-300); CALCIUM 8.8 mg/dL (8.5-10.1); CHLORIDE - SERUM 106 mmol/L (98-107); GLUCOSE 78 mg/dL (74-106); POTASSIUM - SERUM 3.8 mmol/L (3.5-5.1); PROTEIN - SERUM 6.8 g/dL (6.4-8.2); SODIUM 145 mmol/L (136-145); UREA NITROGEN 22 mg/dL (7-18); eGFR NON AFRICAN AMERICAN > 90 mL/min (90-120)
[2018-05-12] MEDS ORDERED: NEURONTIN 300300 MG (08:40)
== END 2018-05-12 14:36 | disposition home or self-care (01) | DRG 92 ==
LOC: D.ER 18:28 → D.EDHOLD 05-12 03:43 → D.ICU 05-12 03:43
PROVIDERS: Family Medicine
DX: R47.1 Dysarthria and anarthria (principal); F05 Delirium due to known physiological condition; R47.01 Aphasia; G40.909 Epilepsy, unspecified, not intractable, without status epilepticus; W19.XXXA Unspecified fall, initial encounter; F20.9 Schizophrenia, unspecified; F15.10 Other stimulant abuse, uncomplicated; R13.10 Dysphagia, unspecified